=== PATIENT | male | born 1985 | race Caucasian/White ===

== ENCOUNTER 2016-07-09 19:18 | Emergency (ER) | payer OTHER ==
[2016-07-09 19:28] VITALS: BP 140/77; PULSE 86; RESP 18; TEMP 97.9
--- NOTE | 2016-07-09 19:38 | ED ---
General Adult HPI - General Chief complaint: Extremity Injury, Lower Stated complaint: Foot Injury Time Seen by Provider: 07/09/16 19:28 Source: patient, RN notes reviewed Mode of arrival: ambulatory Limitations: no limitations - History of Present Illness Initial comments: Patient is a 30-year-old male who presents emergency room today with a chief complaint of an injury to the right foot that occurred just prior to arrival. He does admit that he had a dog cage that he was carrying down the steps when she slipped landing on top of his right foot. He does admit that his had increased pain since worse with movements of both plantar and dorsiflexion. Patient denies any other complaints associated symptoms. Patient denies any recent fever, chills, shortness of breath, chest pain, back pain, abdominal pain , nausea or vomiting, numbness or tingling, dysuria or hematuria, constipation or diarrhea, headaches or visual changes, or any other complaints. - Related Data Previous Rx's Medication Instructions Recorded Ibuprofen [Motrin] 600 mg PO Q6HR PRN #30 day 07/09/16 Allergies Allergy/AdvReac Type Severity Reaction Status Date / Time latex Allergy Unknown Verified 07/09/16 19:27 Penicillins Allergy Unknown Verified 07/09/16 19:27 Review of Systems ROS Statement: Those systems with pertinent positive or pertinent negative responses have been documented in the HPI. ROS Other: All systems not noted in ROS Statement are negative. Past Medical History Past Medical History: Asthma Additional Past Medical History / Comment(s): neurontin helping with bipolar History of Any Multi-Drug Resistant Organisms: None Reported Additional Past Surgical History / Comment(s): facial reconstruction Past Psychological History: ADD/ADHD, Bipolar, Panic Disorder, PTSD Smoking Status: Current every day smoker Past Alcohol Use History: None Reported Past Drug Use History: None Reported General Exam - General Exam Comments Initial Comments: General: The patient is awake and alert, in no distress, and does not appear acutely ill. Neck: The neck is supple, there is no tenderness or JVD. Cardiovascular: There is a regular rate and rhythm. No murmur, rub or gallop is appreciated. Respiratory: Lungs are clear to auscultation, respirations are non-labored, breath sounds are equal. No wheezes, stridor, rales, or rhonchi. Musculoskeletal: Mild redness over the dorsal aspect of the right foot. Patient shows good range of motion of the digits. Limited range of motion of both plantar and dorsiflexion due to pain. Locally tender to palpation over the proximal first, second, third metatarsals. Sensations are intact pulses equal bilaterally 2+. Strength is 5/5. Neurological: A&O x 3. CN II-XII intact, There are no obvious motor or sensory deficits. Coordination appears grossly intact. Speech is normal. Skin: Skin is warm and dry and no rashes or lesions are noted. Psychiatric: Normal mood and affect. Limitations: no limitations Course Vital Signs 07/09/16 19:25 Temperature 97.9 F Pulse Rate 86 Respiratory 18 Rate Blood Pressure 140/77 O2 Sat by Pulse 96 Oximetry Medical Decision Making - Medical Decision Making X-rays reviewed shows no acute fracture dislocation. Patient advised to continue to ice elevate. Advised use ibuprofen for pain. Advised follow-up with family doctor or orthopedics over the next 7-10 days for repeat x-rays if symptoms persist. Disposition Clinical Impression: Foot contusion Disposition: HOME SELF-CARE Condition: Good Instructions: Foot Contusion (ED) Additional Instructions: Please use ibuprofen for pain. Please continue to ice elevate the affected areas 4 times a day for 20 minutes at a time. Please follow-up the family doctor or orthopedics over the next 7-10 days for repeat x-rays if symptoms persist. Please return to emergency room if the symptoms increase or worsen or for any other concerns. Prescriptions: Ibuprofen [Motrin] 600 mg PO Q6HR PRN #30 day PRN Reason: Pain Referrals: Yobany Chung MD [Primary Care Provider] - 1-2 days Andres Mcadams MD [STAFF PHYSICIAN] - 1-2 days Time of Disposition: 20:23
--- NOTE | 2016-07-09 20:03 | XR ---
EXAMINATION TYPE: XR foot limited RT DATE OF EXAM: 07/09/2016 7:50 PM COMPARISON: NONE HISTORY: Foot pain TECHNIQUE: 3 views FINDINGS: I see no fracture nor dislocation. Joint spaces are normal. Metatarsals are intact. IMPRESSION: Negative right foot exam.
--- NOTE | 2016-07-09 20:04 | XR ---
EXAMINATION TYPE: XR ankle limited RT DATE OF EXAM: 07/09/2016 7:50 PM COMPARISON: NONE HISTORY: Ankle pain TECHNIQUE: 3 views FINDINGS: Ankle mortise is anatomic. I see no fracture nor dislocation. Joint spaces are normal. IMPRESSION: Normal right ankle.
[2016-07-09] MEDS ORDERED: IBUPROFEN 600 MG STARTER PACK 4 TAB BTL PO STA (20:19)
== END 2016-07-09 20:24 | disposition home or self-care (01) ==
LOC: EC 19:18
DX: S90.31XA Contusion of right foot, initial encounter (principal); F17.200 Nicotine dependence, unspecified, uncomplicated; Z88.0 Allergy status to penicillin; Z91.040 Latex allergy status; W20.8XXA Other cause of strike by thrown, projected or falling object, initial encounter; Y92.009 Unspecified place in unspecified non-institutional (private) residence as the place of occurrence of the external cause
CPT/HCPCS: 99283

== ENCOUNTER 2016-08-14 18:30 | Emergency (ER) | payer OTHER ==
[2016-08-14] MEDS ORDERED: IPRATROPIUM-ALBUTEROL 3 ML NEB INHALATION STA (19:00)
[2016-08-14 19:29] VITALS: PULSE 84
--- NOTE | 2016-08-14 19:32 | ED ---
ENT HPI - General Chief complaint: ENT Stated complaint: COLD SYMPTOMS, EAR PAIN/POPPING Time Seen by Provider: 08/14/16 18:52 Source: patient Mode of arrival: ambulatory Limitations: no limitations - History of Present Illness Initial comments: Patient is a 30-year-old white male with medical history significant for asthma and nicotine dependence presenting to the emergency department with complains of right ear otalgia that started last night after he coughed profusely and hurt his right ear pop. Patient states he's been battling an upper respiratory infection for approximately one week. Patient denies discharge from his right ear but reports sharp pain currently rated 8 out of 10. Patient denies fevers or chills. Patient complains of productive cough with white phlegm. Patient denies shortness of breath, chest pain, or abdominal pain. Patient states he's been taken Motrin [id number] with no relief and Mucinex. MD complaint: ear pain (Right ear) Onset/Timin -: days(s) Location: R ear Severity: moderate Severity scale (1-10): 8 Quality: sharp Consistency: constant Improves with: NSAID Associated Symptoms: cough, rhinorrhea - Related Data Previous Rx's Medication Instructions Recorded Ibuprofen [Motrin] 600 mg PO Q6HR PRN #30 day 07/09/16 Acetaminophen with Codeine 1 tab PO Q4H #20 tab 08/14/16 [Tylenol w/codeine #3] Azithromycin [Zithromax Z-pack] 0 mg PO DIRECTED #6 tab 08/14/16 Ciprofloxacin-Dexameth [Ciprodex 4 drops RIGHT EAR BID #1 bottle 08/14/16 Otic Susp] Ipratropium-Albuterol Nebulize 3 ml INHALATION QID PRN #30 neb 08/14/16 [Duoneb 0.5 mg-3 mg/3 ml Soln] methylPREDNISolone Dose Pack 4 mg PO DIRECTED #21 package 08/14/16 [Medrol Dose Pack] Allergies Allergy/AdvReac Type Severity Reaction Status Date / Time latex Allergy Unknown Verified 08/14/16 18:51 Penicillins Allergy Unknown Verified 08/14/16 18:51 Review of Systems ROS Statement: Those systems with pertinent positive or pertinent negative responses have been documented in the HPI. ROS Other: All systems not noted in ROS Statement are negative. Past Medical History Past Medical History: Asthma Additional Past Medical History / Comment(s): neurontin helping with bipolar History of Any Multi-Drug Resistant Organisms: None Reported Additional Past Surgical History / Comment(s): facial reconstruction Past Psychological History: ADD/ADHD, Bipolar, Panic Disorder, PTSD Smoking Status: Current every day smoker Past Alcohol Use History: None Reported Past Drug Use History: None Reported General Exam Limitations: no limitations General appearance: alert, in no apparent distress Head exam: Present: atraumatic, normocephalic, normal inspection Eye exam: Present: normal appearance, PERRL, EOMI. Absent: scleral icterus, conjunctival injection, periorbital swelling ENT exam: Present: normal oropharynx, mucous membranes moist Expanded TM/Canal exam: Erythema: Right TM, Effusion: Right TM, Perforation: Right TM Mouth exam: Present: normal external inspection Throat exam: normal inspection. negative: tonsillar erythema, tonsillomegaly, tonsillar exudate, R peritonsillar mass, L peritonsillar mass Neck exam: Present: normal inspection, full ROM. Absent: tenderness Respiratory exam: Present: wheezes, rhonchi Cardiovascular Exam: Present: regular rate, normal rhythm, normal heart sounds GI/Abdominal exam: Present: soft, normal bowel sounds. Absent: distended, tenderness, guarding, rebound, rigid Extremities exam: Present: normal inspection, full ROM Back exam: Present: normal inspection, full ROM Neurological exam: Present: alert, oriented X3, normal gait, other (No focal deficits noted) Psychiatric exam: Present: normal affect, normal mood Skin exam: Present: warm, dry, intact, normal color. Absent: rash Course Vital Signs 08/14/16 08/14/16 08/14/16 18:49 19:23 19:29 Temperature 98.8 F Pulse Rate 90 78 84 Respiratory 20 Rate Blood Pressure 128/58 O2 Sat by Pulse 96 Oximetry 08/14/16 19:49 Temperature 98.6 F Pulse Rate 84 Respiratory 18 Rate Blood Pressure 121/69 O2 Sat by Pulse 99 Oximetry Medical Decision Making - Medical Decision Making Patient is a 30-year-old male who presents with acute otitis media with tympanic membrane rupture to right ear and bronchitis. Chest x-ray negative for infiltrate. Patient given nebulized updraft treatment with relief. Patient provided with prescription for Zithromax, ciprofloxacin eardrops, prednisone taper pack, DuoNeb updrafts, and Tylenol 3. Patient instructed to follow-up with ENT if symptoms do not improve and primary care physician as directed. Patient educated on importance of nicotine cessation. Patient agrees to treatment plan. Discharge instructions and return parameters reviewed. - Radiology Data Radiology results: report reviewed Chest x-ray: No pulmonary acute process. Disposition Clinical Impression: Otitis media, Rupture of tympanic membrane, Bronchitis Disposition: HOME SELF-CARE Condition: Good Instructions: Ruptured Eardrum (ED), Otitis Media (ED), Acute Bronchitis (ED), Wheezing (ED) Additional Instructions: Keep water out of the ear until tympanic membrane heals using a cotton ball saturated with petrolatum before hair washing, no swimming or other water exposure until healed, do not use earplugs to try to clean out the with a Q- tip. Finish prescribed medication as directed. Follow-up with ENT if any concerns for hearing loss worsening symptoms. Follow-up with primary care physician as directed. Please return to the emergency department if symptoms do not improve or get worse. Prescriptions: Acetaminophen with Codeine [Tylenol w/codeine #3] 1 tab PO Q4H #20 tab Azithromycin [Zithromax Z-pack] 0 mg PO DIRECTED #6 tab Ciprofloxacin-Dexameth [Ciprodex Otic Susp] 4 drops RIGHT EAR BID #1 bottle Ipratropium-Albuterol Nebulize [Duoneb 0.5 mg-3 mg/3 ml Soln] 3 ml INHALATION QID PRN #30 neb PRN Reason: Shortness Of Breath methylPREDNISolone Dose Pack [Medrol Dose Pack] 4 mg PO DIRECTED #21 package Referrals: Yobany Chung MD [Primary Care Provider] - 1-2 days Yoni Mi MD [STAFF PHYSICIAN] - 1-2 days Time of Disposition: 19:59
--- NOTE | 2016-08-14 19:32 | XR ---
EXAMINATION TYPE: XR chest 2V DATE OF EXAM: 08/14/2016 7:14 PM COMPARISON: 07/15/2012 INDICATION: Pain cough and congestion TECHNIQUE: Single frontal view of the chest is obtained. FINDINGS: The heart size is normal. The pulmonary vasculature is normal. The lungs are clear. IMPRESSION: 1. No acute pulmonary process.
[2016-08-14] MEDS ORDERED: CIPROFLOXACIN-DEXAMETH 0.3-0.1% DROPS 7.5 ML BTL RIGHT EAR STA (19:44)
[2016-08-14 19:50] VITALS: BP 121/69; RESP 18; TEMP 98.6
[2016-08-14] MEDS ORDERED: Acetaminophen-Codeine 300-30mg TAB PO STA (20:02)
== END 2016-08-14 20:18 | disposition home or self-care (01) ==
LOC: EC 18:30
DX: H66.91 Otitis media, unspecified, right ear (principal); H72.91 Unspecified perforation of tympanic membrane, right ear; R05 Cough; J45.909 Unspecified asthma, uncomplicated; F17.210 Nicotine dependence, cigarettes, uncomplicated; Z79.899 Other long term (current) drug therapy; Z88.0 Allergy status to penicillin; Z91.040 Latex allergy status
CPT/HCPCS: 71020; 94640; 99283

== ENCOUNTER 2017-09-04 08:13 | Emergency (ER) | payer OTHER ==
[2017-09-04 08:27] VITALS: BP 118/63; PULSE 77; RESP 18; TEMP 98.3
--- NOTE | 2017-09-04 08:36 | ED ---
ENT HPI - General Chief complaint: ENT Stated complaint: Ear pain Time Seen by Provider: 09/04/17 08:29 Source: patient, RN notes reviewed Mode of arrival: ambulatory Limitations: no limitations - History of Present Illness Initial comments: 31-year-old male presents emergency department she went right ear pain. Patient 's visual: No male with right ear pain. Patient has been sick for last week with sinus congestion states is getting better. Patient does admit to some coughing and chest congestion but states it's also improving. Patient is a smoker. Patient states she's had no fevers or chills. Patient did take an Aleve states helped his discomfort to his right ear. - Related Data Previous Rx's Medication Instructions Recorded Ibuprofen [Motrin] 600 mg PO Q6HR PRN #30 day 07/09/16 Acetaminophen with Codeine 1 tab PO Q4H #20 tab 08/14/16 [Tylenol w/codeine #3] Azithromycin [Zithromax Z-pack] 0 mg PO DIRECTED #6 tab 08/14/16 Ciprofloxacin-Dexameth [Ciprodex 4 drops RIGHT EAR BID #1 bottle 08/14/16 Otic Susp] Ipratropium-Albuterol Nebulize 3 ml INHALATION QID PRN #30 neb 08/14/16 [Duoneb 0.5 mg-3 mg/3 ml Soln] methylPREDNISolone Dose Pack 4 mg PO DIRECTED #21 package 08/14/16 [Medrol Dose Pack] Azithromycin [Zithromax Z-pack] 0 mg PO DIRECTED #1 pack 09/04/17 predniSONE 50 mg PO DAILY #5 tab 09/04/17 Allergies Allergy/AdvReac Type Severity Reaction Status Date / Time latex Allergy Unknown Verified 09/04/17 08:27 Penicillins Allergy Unknown Verified 09/04/17 08:27 Review of Systems ROS Statement: Those systems with pertinent positive or pertinent negative responses have been documented in the HPI. ROS Other: All systems not noted in ROS Statement are negative. Past Medical History Past Medical History: Asthma Additional Past Medical History / Comment(s): neurontin helping with bipolar History of Any Multi-Drug Resistant Organisms: None Reported Additional Past Surgical History / Comment(s): facial reconstruction Past Psychological History: ADD/ADHD, Bipolar, Depression, Panic Disorder, PTSD Smoking Status: Current every day smoker Past Alcohol Use History: None Reported Past Drug Use History: None Reported General Exam Limitations: no limitations General appearance: alert, in no apparent distress Head exam: Present: atraumatic, normocephalic, normal inspection Eye exam: Present: normal appearance, PERRL, EOMI. Absent: scleral icterus, conjunctival injection, periorbital swelling ENT exam: Present: normal oropharynx, mucous membranes moist, normal external ear exam. Absent: TM's normal bilaterally (Right TM erythematous) Neck exam: Present: normal inspection, full ROM. Absent: tenderness, meningismus, lymphadenopathy Respiratory exam: Present: wheezes (Mild). Absent: normal lung sounds bilaterally, respiratory distress, rales, rhonchi, stridor Cardiovascular Exam: Present: regular rate, normal rhythm, normal heart sounds. Absent: systolic murmur, diastolic murmur, rubs, gallop, clicks Back exam: Absent: CVA tenderness (R), CVA tenderness (L) Skin exam: Present: warm, dry, intact, normal color. Absent: rash Course Vital Signs 09/04/17 08:25 Temperature 98.3 F Pulse Rate 77 Respiratory 18 Rate Blood Pressure 118/63 O2 Sat by Pulse 97 Oximetry Medical Decision Making - Medical Decision Making 31-year-old male presented from for right ear pain. Patient has a right otitis media. Patient was started on azithromycin as he has an ALLERGY to penicillin. Patient will be given steroids for his mild bronchospasms noted. Patient advised quit smoking. Return parameters were discussed. Disposition Clinical Impression: Right otitis media, URI (upper respiratory infection) Disposition: HOME SELF-CARE Condition: Stable Instructions: Earache (ED) Additional Instructions: Please return to the Emergency Department if symptoms worsen or any other concerns. Prescriptions: Azithromycin [Zithromax Z-pack] 0 mg PO DIRECTED #1 pack predniSONE 50 mg PO DAILY #5 tab Referrals: Yobany Chung MD [Primary Care Provider] - 1-2 days Time of Disposition: 08:36
== END 2017-09-04 08:53 | disposition home or self-care (01) ==
LOC: EC 08:13
DX: H66.91 Otitis media, unspecified, right ear (principal); J06.9 Acute upper respiratory infection, unspecified; F17.200 Nicotine dependence, unspecified, uncomplicated; Z91.040 Latex allergy status; Z88.0 Allergy status to penicillin
CPT/HCPCS: 99282

== ENCOUNTER → 2018-12-07 | Outpatient (CLI) | payer OTHER ==
--- NOTE | 2018-12-08 16:37 | MR ---
EXAMINATION TYPE: MR lumbar spine wo con DATE OF EXAM: 12/07/2018 COMPARISON: None HISTORY: Low back pain TECHNIQUE: Multiplanar, multisequence images of the lumbar spine were acquired. FINDINGS: No abnormal bone marrow signal is seen. Multiple lymph nodes are present. Multilevel disc d esiccation is seen. Lumbar spine vertebral bodies maintain normal vertebral body height and alignment . Conus medullaris is unremarkable terminating at L1-2. L1-L2: Mild facet arthropathy is seen. Disc desiccation is present without spinal canal stenosis nor neural foraminal narrowing. L2-L3: There is a broad-based disc bulge and minimal facet arthropathy without spinal canal stenosis or neural foraminal narrowing. L3-L4: There is a mild broad-based disc bulge with facet arthropathy. No spinal canal stenosis nor ne ural foraminal narrowing. L4-L5: There is a small central disc herniation with annular tear as well as facet arthropathy result ing in minimal bilateral neural foraminal narrowing without spinal canal stenosis. L5-S1: Very small central disc herniation is seen without spinal canal stenosis or neural foraminal n arrowing. Minimal facet arthropathy is present. IMPRESSION: 1. Small central disc herniations at L4-L5 and L5-S1 without spinal canal stenosis. Multilevel degene rative disc disease resulting in minimal bilateral neural foraminal narrowing at L4-L5. 2. No evidence of vertebral body height loss or malalignment.
== END | disposition home or self-care (01) ==
LOC: RADMRIMAIN 16:51
PROVIDERS: ATTEND Internal Medicine
DX: M48.061 Spinal stenosis, lumbar region without neurogenic claudication (principal); M51.26 Other intervertebral disc displacement, lumbar region; M51.36 Other intervertebral disc degeneration, lumbar region
CPT/HCPCS: 72148

== ENCOUNTER → 2022-02-17 | Outpatient (CLI) | payer OTHER ==
--- NOTE | 2022-02-19 07:28 | US ---
EXAMINATION TYPE: US abdomen complete DATE OF EXAM: 02/17/2022 COMPARISON: NONE CLINICAL HISTORY: R10.9 ABDOMINAL PAIN, K59.09 CONSTIPATION. Pain and constipation. TECHNIQUE: Multiple sonographic images of the abdomen are obtained. FINDINGS: EXAM MEASUREMENTS: Liver Length: 17.6 cm Gallbladder Wall: 0.23 cm CBD: 0.36 cm Spleen: 12.2 cm Right Kidney: 13.4 x 5.8 x 5.0 cm Left Kidney: 11.0 x 6.6 x 6.0 cm [employer] NOTES: Limited due to overlying bowel gas. Pancreas: Not well visualized. Liver: Measures upper limits. Appears very coarse with increased attenuation. Gallbladder: Hyperechoic foci seen within the gallbladder. Largest: 2.2 x 2.0 x 1.1 cm. There also appears to be a hyperechoic area attached to the gallbladder wall: 0.5 x 0.3 x 0.3 cm. Evidence for sonographic Jesus's sign: No CBD: Appears wnl Spleen: Appears wnl Right Kidney: Appears slightly enlarged. No hydronephrosis or masses seen Left Kidney: No hydronephrosis or masses seen Upper IVC: Appears wnl Abd Aorta: Prox appears ectatic. Iliacs were obscured. IMPRESSION: 1. Hepatic steatosis. 2. Cholelithiasis. Adherent gallstone versus polyp.
== END | disposition home or self-care (01) ==
LOC: RADUSWWP 07:53
PROVIDERS: ATTEND Family Medicine
DX: K80.20 Calculus of gallbladder without cholecystitis without obstruction (principal); K76.0 Fatty (change of) liver, not elsewhere classified
CPT/HCPCS: 76700

== ENCOUNTER 2024-04-21 04:51 | Emergency (ER) | payer OTHER ==
[2024-04-21 05:18] VITALS: RESP 18
--- NOTE | 2024-04-21 06:22 | ED ---
General Adult HPI - General Source: patient, RN notes reviewed Mode of arrival: ambulatory <Pam Mayfield - Last Filed: 04/21/24 06:21> <Calos Perez - Last Filed: 04/21/24 15:10> - General Chief complaint: Psychiatric Symptoms Stated complaint: Abd Pain/Psych Time Seen by Provider: 04/21/24 06:21 - History of Present Illness Initial comments: Quick note: 38-year-old male presented the ER with a chief complaint of abdominal pain and depression. Patient reports for the past few days he has been having a stabbing right upper quadrant abdominal pain. He states he has not been able to keep anything down but Sprite. Positive nausea but no vomiting. Patient also is admitting to suicidal ideations. No plans. He does report smoking marijuana. Denies any alcohol use. No homicidal ideations. No fevers. (Pam Mayfield) This is a 38-year-old male who states that he comes in because he is got abdominal pain and some depression. Patient states that depression is because the last 4 days his has been telling him she does not want him around anymore and he feels as though she is cheating on him. Patient states he had some suicidal thoughts but he denies wanting to kill himself and he states he will kill himself because he has 4 children. Patient denies any vomiting or diarrhea he states he has had longstanding abdominal pains particular in the right upper quadrant but it got worse tonight after he talked to his . (Calos Perez) - Related Data Home Medications Medication Instructions Recorded Confirmed Naproxen Sodium [Aleve] 220 mg PO DAILY PRN 09/04/17 09/04/17 Previous Rx's Medication Instructions Recorded Azithromycin [Zithromax Z-pack (6 0 mg PO DIRECTED #1 pack 09/04/17 tabs)] predniSONE 50 mg PO DAILY #5 tab 09/04/17 Allergies Allergy/AdvReac Type Severity Reaction Status Date / Time latex Allergy Unknown Verified 09/04/17 08:53 Penicillins Allergy Unknown Verified 09/04/17 08:53 Review of Systems ROS Other: All systems not noted in ROS Statement are negative. <Pam Mayfield - Last Filed: 04/21/24 06:21> ROS Other: All systems not noted in ROS Statement are negative. <Calos Perez - Last Filed: 04/21/24 15:10> ROS Statement: Those systems with pertinent positive or pertinent negative responses have been documented in the HPI. Past Medical History Past Medical History: Asthma Additional Past Medical History / Comment(s): neurontin helping with bipolar History of Any Multi-Drug Resistant Organisms: None Reported Additional Past Surgical History / Comment(s): facial reconstruction Past Psychological History: ADD/ADHD, Bipolar, Depression, Panic Disorder, PTSD Past Alcohol Use History: None Reported Past Drug Use History: None Reported <Pam Mayfield - Last Filed: 04/21/24 06:21> General Exam <Pam Mayfield - Last Filed: 04/21/24 06:21> <Calos Perez - Last Filed: 04/21/24 15:10> - General Exam Comments Initial Comments: Visual Physical Exam Vital signs reviewed General: Well-appearing, nontoxic, no acute distress. Head: Normocephalic, atraumatic Eyes: PERRLA, EOMI ENT: Airway patent Chest: Nonlabored breathing Skin: No visual rash, normal skin tone Neuro: Alert and oriented 3 Musculoskeletal: No gross abnormalities (Pam Mayfield) GENERAL: Patient is well-developed and well-nourished. Patient is nontoxic and well- hydrated and is in mild distress. ENT: Neck is soft and supple. No significant lymphadenopathy is noted. Oropharynx is clear. Moist mucous membranes. Neck has full range of motion without eliciting any pain. EYES: The sclera were anicteric and conjunctiva were pink and moist. Extraocular movements were intact and pupils were equal round and reactive to light. Eyelids were unremarkable. PULMONARY: Unlabored respirations. Good breath sounds bilaterally. No audible rales rhonchi or wheezing was noted. CARDIOVASCULAR: There is a regular rate and rhythm without any murmurs gallops or rubs. ABDOMEN: Right upper quadrant abdominal pain SKIN: Skin is clear with no lesions or rashes and otherwise unremarkable. NEUROLOGIC: Patient is alert and oriented x3. Cranial nerves II through XII are grossly intact. Motor and sensory are also intact. Normal speech, volume and content. Symmetrical smile. MUSCULOSKELETAL: Normal extremities with adequate strength and full range of motion. LYMPHATICS: No significant lymphadenopathy is noted PSYCHIATRIC: Normal psychiatric evaluation. (Calos Perez) Course Vital Signs 04/21/24 04/21/24 05:07 12:35 Temperature 98.8 F 98.6 F Pulse Rate 101 H 96 Respiratory 18 18 Rate Blood Pressure 130/82 139/86 O2 Sat by Pulse 98 97 Oximetry Medical Decision Making <Pam Mayfield - Last Filed: 04/21/24 06:21> - Lab Data Result diagrams: 04/21/24 06:30 04/21/24 06:30 <Calos Perez - Last Filed: 04/21/24 15:10> - Medical Decision Making I performed the quick note portion of this chart. Electronically signed by Pam Mayfield PA-C (Pam Mayfield) Was pt. sent in by a medical professional or institution ([facility]ALIA Lenz, EMERGENCY DEPT TECH, urgent care, hospital, or penitentiary...) When possible be specific @ -No Did you speak to anyone other than the patient for history (EMS, parent, family, police, friend...)? What history was obtained from this source @ -No Did you review nursing and triage notes (agree or disagree)? Why? @ -I reviewed and agree with nursing and triage notes Were old charts reviewed (outside hosp., previous admission, EMS record, old EKG, old radiological studies, urgent care reports/EKG's, penitentiary records)? Report findings @ -No old charts were reviewed Differential Diagnosis? @ -Differential Abdominal Pain Men: Appendicitis, cholecystitis, diverticulosis, ischemic bowel, pancreatitis, hepatitis, UTI, gastroenteritis, AAA, incarcerated hernia, bowel obstruction, constipation, inflammatory bowel, hepatitis, peptic ulcer disease, splenic infarction, perforated viscus, testicular torsion, this is not meant to be an all-inclusive list EKG interpreted by me (3pts min.). @ -As above X-rays interpreted by me (1pt min.). @ -None done CT interpreted by me (1pt min.). @ -CT showed large stones in the gallbladder neck no signs of cholecystitis U/S interpreted by me (1pt. min.). @ -Multiple stones in the gallbladder What testing was considered but not performed or refused? (CT, X-rays, U/S, labs)? Why? @ -None What meds were considered but not given or refused? Why? @ -None Did you discuss the management of the patient with other professionals (professionals i.e. , PA, EMERGENCY DEPT TECH, lab, RT, psych nurse, social secretary, visiting professor, teacher, associate loan officer, manager rn case)? Give summary @ -I spoke with Dr. La and he spoke with the patient Was smoking cessation discussed for >3mins.? @ -No Was critical care preformed (if so, how long)? @ -No Were there social determinants of health that impacted care today? How? (Homelessness, low income, unemployed, alcoholism, drug addiction, transportatio n, low edu. Level, literacy, decrease access to med. care, prison, rehab)? @ -No Was there de-escalation of care discussed even if they declined (Discuss DNR or withdrawal of care, Hospice)? DNR status @ -No What co-morbidities impacted this encounter? (DM, HTN, Smoking, COPD, CAD, Cancer, CVA, ARF, Chemo, Hep., AIDS, mental health diagnosis, sleep apnea, morbid obesity)? @ -None Was patient admitted / discharged? Hospital course, mention meds given and route, prescriptions, significant lab abnormalities, going to OR and other pertinent info. @ -Patient was evaluated the emergency department and ultrasound and CT were done. Patient had stones in the gallbladder and it was very tender in the right upper quadrant and Dr. La wanted the patient to stay but the patient refused that he decided to leave AMA. I went back and and evaluated the patient he again wanted to leave A and he also stated he was not suicidal he just had fleeting thoughts of that when his and him are having problems. Patient states he does not want to be evaluated for psychiatric issues or depression. I asked him at least 3 times if he was suicidal and he denied at all 3 times. Patient stated he might come back tomorrow morning. Undiagnosed new problem with uncertain prognosis? @ -No Drug Therapy requiring intensive monitoring for toxicity (Heparin, Nitro, Insulin, Cardizem)? @ -No Were any procedures done? @ -No Diagnosis/symptom? @ -Cholelithiasis Acute, or Chronic, or Acute on Chronic? @ -Acute Uncomplicated (without systemic symptoms) or Complicated (systemic symptoms)? @ -Complicated Side effects of treatment? @ -No Exacerbation, Progression, or Severe Exacerbation? @ -No Poses a threat to life or bodily function? How? (Chest pain, [place], [place], pneumonia, PE, COPD, DKA, ARF, appy, cholecystitis, CVA, Diverticulitis, Homicidal, Suicidal, threat to staff... and all critical care pts) @ -Yes this can cause sepsis and endorgan dysfunction or (Calos Perez) - Lab Data Lab Results 04/21/24 04/21/24 04/21/24 Range/Units 06:30 06:30 06:30 WBC 10.1 (3.8-10.6) k/uL RBC 5.40 (4.30-5.90) m/uL Hgb 16.7 (13.0-17.5) gm/dL Hct 48.9 (39.0-53.0) % MCV 90.5 (80.0-100.0) fL MCH 30.9 (25.0-35.0) pg MCHC 34.2 (31.0-37.0) g/dL RDW 12.5 (11.5-15.5) % Plt Count 268 (150-450) k/uL MPV 7.9 Neutrophils % 74 % Lymphocytes % 18 % Monocytes % 5 % Eosinophils % 1 % Basophils % 0 % Neutrophils # 7.5 (1.3-7.7) k/uL Lymphocytes # 1.8 (1.0-4.8) k/uL Monocytes # 0.5 (0-1.0) k/uL Eosinophils # 0.1 (0-0.7) k/uL Basophils # 0.0 (0-0.2) k/uL Sodium 139 (137-145) mmol/L Potassium 4.4 (3.5-5.1) mmol/L Chloride 104 (98-107) mmol/L Carbon Dioxide 31 H (22-30) mmol/L Anion Gap 4 mmol/L BUN 11 (9-20) mg/dL Creatinine 0.95 (0.66-1.25) mg/dL Est GFR (CKD-EPI)AfAm >90 (>60 ml/min/1.73 sqM) Est GFR (CKD-EPI)NonAf >90 (>60 ml/min/1.73 sqM) Glucose 105 H (74-99) mg/dL Plasma Lactic Acid Dany (0.7-2.0) mmol/L Calcium 9.6 (8.4-10.2) mg/dL Total Bilirubin 0.7 (0.2-1.3) mg/dL AST 30 (17-59) U/L ALT 51 H (4-49) U/L Alkaline Phosphatase 73 (38-126) U/L Total Protein 8.2 (6.3-8.2) g/dL Albumin 5.3 H (3.5-5.0) g/dL Amylase 38 (30-110) U/L Lipase 33 (23-300) U/L Urine Color Colorless Urine Appearance Clear (Clear) Urine pH 6.0 (5.0-8.0) Ur Specific [place] 1.005 (1.001-1.035) Urine Protein Negative (Negative) Urine Glucose (UA) Negative (Negative) Urine Ketones Negative (Negative) Urine Blood Negative (Negative) Urine Nitrite Negative (Negative) Urine Bilirubin Negative (Negative) Urine Urobilinogen <2.0 (<2.0) mg/dL Ur Leukocyte Esterase Negative (Negative) Urine Opiates Screen Not Detected (NotDetected) Ur Oxycodone Screen Not Detected (NotDetected) Urine Methadone Screen Not Detected (NotDetected) Ur Barbiturates Screen Not Detected (NotDetected) U Tricyclic Antidepress Not Detected (NotDetected) Ur Phencyclidine Scrn Not Detected (NotDetected) Ur Amphetamines Screen Not Detected (NotDetected) U Methamphetamines Scrn Not Detected (NotDetected) U Benzodiazepines Scrn Not Detected (NotDetected) Urine Cocaine Screen Not Detected (NotDetected) U Marijuana (THC) Screen Detected H (NotDetected) Serum Alcohol <10 mg/dL 04/21/24 Range/Units 06:30 WBC (3.8-10.6) k/uL RBC (4.30-5.90) m/uL Hgb (13.0-17.5) gm/dL Hct (39.0-53.0) % MCV (80.0-100.0) fL MCH (25.0-35.0) pg MCHC (31.0-37.0) g/dL RDW (11.5-15.5) % Plt Count (150-450) k/uL MPV Neutrophils % % Lymphocytes % % Monocytes % % Eosinophils % % Basophils % % Neutrophils # (1.3-7.7) k/uL Lymphocytes # (1.0-4.8) k/uL Monocytes # (0-1.0) k/uL Eosinophils # (0-0.7) k/uL Basophils # (0-0.2) k/uL Sodium (137-145) mmol/L Potassium (3.5-5.1) mmol/L Chloride (98-107) mmol/L Carbon Dioxide (22-30) mmol/L Anion Gap mmol/L BUN (9-20) mg/dL Creatinine (0.66-1.25) mg/dL Est GFR (CKD-EPI)AfAm (>60 ml/min/1.73 sqM) Est GFR (CKD-EPI)NonAf (>60 ml/min/1.73 sqM) Glucose (74-99) mg/dL Plasma Lactic Acid Dany 1.1 (0.7-2.0) mmol/L Calcium (8.4-10.2) mg/dL Total Bilirubin (0.2-1.3) mg/dL AST (17-59) U/L ALT (4-49) U/L Alkaline Phosphatase (38-126) U/L Total Protein (6.3-8.2) g/dL Albumin (3.5-5.0) g/dL Amylase (30-110) U/L Lipase (23-300) U/L Urine Color Urine Appearance (Clear) Urine pH (5.0-8.0) Ur Specific [place] (1.001-1.035) Urine Protein (Negative) Urine Glucose (UA) (Negative) Urine Ketones (Negative) Urine Blood (Negative) Urine Nitrite (Negative) Urine Bilirubin (Negative) Urine Urobilinogen (<2.0) mg/dL Ur Leukocyte Esterase (Negative) Urine Opiates Screen (NotDetected) Ur Oxycodone Screen (NotDetected) Urine Methadone Screen (NotDetected) Ur Barbiturates Screen (NotDetected) U Tricyclic Antidepress (NotDetected) Ur Phencyclidine Scrn (NotDetected) Ur Amphetamines Screen (NotDetected) U Methamphetamines Scrn (NotDetected) U Benzodiazepines Scrn (NotDetected) Urine Cocaine Screen (NotDetected) U Marijuana (THC) Screen (NotDetected) Serum Alcohol mg/dL Disposition <Pam Mayfield - Last Filed: 04/21/24 06:21> Time of Disposition: 12:24 <Calos Perez - Last Filed: 04/21/24 15:10> Clinical Impression: Situational depression, Cholelithiasis Disposition: LEFT AGAINST MEDICAL ADVICE Referrals: Anastasiia Alicea MD [Primary Care Provider] - 1-2 days
[2024-04-21 06:44] LABS: Basophils % (A) 0 %; Eosinophils # (A) 0.1 k/uL (0-0.7); Eosinophils % (A) 1 %; HCT 48.9 % (39.0-53.0); HGB 16.7 gm/dL (13.0-17.5); Lymphocytes # (A) 1.8 k/uL (1.0-4.8); Lymphocytes % (A) 18 %; MCH 30.9 pg (25.0-35.0); MCHC 34.2 g/dL (31.0-37.0); MCV 90.5 fL (80.0-100.0); Mean Platelet Volume 7.9; Monocytes # (A) 0.5 k/uL (0-1.0); Monocytes % (A) 5 %; Neutrophils # (A) 7.5 k/uL (1.3-7.7); Neutrophils % (A) 74 %; Platelet Count 268 k/uL (150-450); RDW 12.5 % (11.5-15.5); WBC 10.1 k/uL (3.8-10.6)
[2024-04-21 06:47] LABS: Appearance,Urine Clear (Clear); Bilirubin,Urine Negative (Negative); Blood,Urine Negative (Negative); Color,Urine Colorless; Glucose,Urine (UA) Negative (Negative); Ketones,Urine Negative (Negative); Leukocyte Esterase,Urine Negative (Negative); Nitrite,Urine Negative (Negative); Protein,Urine Negative (Negative); Specific Gravity,Urine 1.005 (1.001-1.035); Urobilinogen,Urine <2.0 mg/dL (<2.0)
[2024-04-21 06:58] LABS: ALT 51 U/L (4-49); AST 30 U/L (17-59); African American GFR (CKD) >90 (>60 ml/min/1.73 sqM); Albumin 5.3 g/dL (3.5-5.0); Alcohol <10 mg/dL; Alkaline Phosphatase 73 U/L (38-126); Amylase 38 U/L (30-110); Anion Gap 4 mmol/L; Blood Urea Nitrogen 11 mg/dL (9-20); Calcium 9.6 mg/dL (8.4-10.2); Carbon Dioxide 31 mmol/L (22-30); Chloride 104 mmol/L (98-107); Glucose 105 mg/dL (74-99); Lipase 33 U/L (23-300); Non-African American GFR(CKD) >90 (>60 ml/min/1.73 sqM); Potassium 4.4 mmol/L (3.5-5.1); Sodium 139 mmol/L (137-145); Total Bilirubin 0.7 mg/dL (0.2-1.3); Total Protein 8.2 g/dL (6.3-8.2)
[2024-04-21 07:04] LABS: Amphetamine Screen,Urine Not Detected (NotDetected); Barbiturate Screen,Urine Not Detected (NotDetected); Benzodiazepines Screen,Urine Not Detected (NotDetected); Cocaine Screen,Urine Not Detected (NotDetected); Methadone Screen, Urine Not Detected (NotDetected); Opiate Screen,Urine Not Detected (NotDetected); Oxycodone Screen, Urine Not Detected (NotDetected); Phencyclidine Screen,Urine Not Detected (NotDetected); Tricyclic Antidepressant,Urine Not Detected (NotDetected); Urn Cannabinoid Scrn Detected (NotDetected)
[2024-04-21] MEDS: ONDANSETRON ODT 4 MG TAB PO STA (08:04)
--- NOTE | 2024-04-21 08:08 | US ---
EXAMINATION TYPE: US gallbladder DATE OF EXAM: 04/21/2024 COMPARISON: 02/17/2022 CLINICAL INDICATION: Male, 38 years old with history of RUQ abd pain; known GB stones from 1 year ago , extreme RUQ and rt flank pain TECHNIQUE: Grayscale and color Doppler imaging of the right upper quadrant was performed. FINDINGS: EXAM MEASUREMENTS: Liver Length: 19.1 cm Gallbladder Wall: 0.2 cm CBD: 0.6 cm Right Kidney: 11.6 x 5.2 x 5.3 cm Pancreas: limited portion seen Liver: enlarged Gallbladder: multiple large stones, one within neck when rolled LLD = 1.6 x 1.4cm, sludge noted with in GB also Evidence for sonographic Jesus's sign: YES CBD: wnl Right Kidney: wnl IMPRESSION: 1. Multiple large gallstones within the distended gallbladder and a positive sonographic Jesus's sig n. The findings are consistent with acute cholecystitis. 2. Hepatomegaly with no focal hepatic mass. 3. Limited evaluation of the pancreas. 4. Unremarkable right kidney. [facility], , 04/21/2024 8:06 AM
--- NOTE | 2024-04-21 09:28 | CT ---
EXAMINATION TYPE: CT abdomen pelvis w con DATE OF EXAM: 04/21/2024 COMPARISON: None CLINICAL INDICATION: Male, 38 years old with history of Right upper quadrant abdominal pain; PHH, RIg ht Upper Quadrant Abdominal Pain TECHNIQUE: Performed without Oral Contrast and with IV Contrast, patient injected with 100 ml mL of Isovue 300. CT DLP: 974.[address] CTDI: mGy Automated exposure control for dose reduction was used. FINDINGS: The lung bases are clear. There are 2 large gallstones within the neck of the gallbladder. There is dense fluid within the gall bladder. There is no pericholecystic fluid.. There is no biliary ductal dilatation. There is no focal mass or organomegaly involving the liver, pancreas, spleen or adrenal glands. There is no solid renal mass or hydronephrosis and there is homogeneous contrast enhancement of the r enal parenchyma. The caliber the abdominal aorta is normal is no retroperitoneal adenopathy or hemorr debora. The bowel loops are normal in caliber and there is no evidence of dilatation or obstruction. No infla mmatory changes are identified in the bowel wall or mesentery. There is no free intraperitoneal air or fluid. No pelvic mass, free fluid, abscess or adenopathy. The osseous structures and soft tissues are intact. IMPRESSION: When correlating the above findings with the gallbladder ultrasound of the same date , the findings strongly suggest acute cholecystitis. No other significant abnormality within the abdomen or pelvis. [facility], , 04/21/2024 9:26 AM
[2024-04-21 12:37] VITALS: BP 139/86; PULSE 96; TEMP 98.6
== END 2024-04-21 13:21 | disposition left against medical advice (07) ==
LOC: EC 04:51
DX: F43.21 Adjustment disorder with depressed mood (principal); K80.20 Calculus of gallbladder without cholecystitis without obstruction; Z91.040 Latex allergy status; Z88.0 Allergy status to penicillin
CPT/HCPCS: 36415; 80053; 82150; 83605; 83690; 85025; 81003; 80306; 76705; 74177; 99285; G0480; Q9967; 80320

== ENCOUNTER 2024-04-22 02:38 | Observation (INO) | payer OTHER ==
--- NOTE | 2024-04-22 04:06 | ED ---
Abdominal Pain HPI - General Stated Complaint: abd pain Time Seen by Provider: 04/22/24 04:01 Source: patient Mode of arrival: ambulatory Limitations: no limitations - History of Present Illness Initial Comments: This patient is a 38-year-old man with abdominal pain who states that he was seen here yesterday for, had workup and was told that he had acute cholecystitis. The patient states that he at that time did not want to have surgery and went home. He was advised by the surgeon to return if the symptoms did not improve. He states that he is not doing any better and in fact the pain may be just a touch worse. He states that he would like to be admitted to have the surgery now. MD Complaint: abdominal pain -: days(s) Location: RUQ Radiation: none Migration to: no migration Severity: moderate Quality: aching, sharp Consistency: colicky Improves With: nothing Worsens With: eating Associated Symptoms: nausea, vomiting - Related Data Previous Rx's Medication Instructions Recorded HYDROcodone/APAP 10-325MG [[place] 1 tab PO Q6H PRN #12 tab MDD 4 tabs 04/24/24 10-325] Ibuprofen [Motrin] 800 mg PO Q6H PRN #24 tab 04/24/24 Allergies Allergy/AdvReac Type Severity Reaction Status Date / Time latex Allergy Swelling Verified 04/22/24 09:32 Penicillins Allergy Unknown Verified 04/22/24 09:32 Childhood Review of Systems ROS Statement: Those systems with pertinent positive or pertinent negative responses have been documented in the HPI. ROS Other: All systems not noted in ROS Statement are negative. Constitutional: Denies: fever, chills Respiratory: Denies: cough, dyspnea Cardiovascular: Denies: chest pain, palpitations Gastrointestinal: Reports: abdominal pain, nausea, vomiting. Denies: diarrhea, melena, hematochezia Genitourinary: Denies: dysuria, hematuria, testicular pain Musculoskeletal: Denies: back pain Skin: Denies: rash Neurological: Denies: headache, weakness Past Medical History Past Medical History: Asthma Additional Past Medical History / Comment(s): neurontin helping with bipolar History of Any Multi-Drug Resistant Organisms: None Reported Additional Past Surgical History / Comment(s): facial reconstruction Past Psychological History: ADD/ADHD, Bipolar, Depression, Panic Disorder, PTSD Past Alcohol Use History: None Reported Past Drug Use History: None Reported - Past Family History Father Family Medical History: Cancer Additional Family Medical History / Comment(s): Bone CA Mother Family Medical History: Cancer, Myocardial Infarction ([place]) Additional Family Medical History / Comment(s): Lung CA General Exam General appearance: alert, in no apparent distress Head exam: Present: atraumatic, normocephalic Eye exam: Present: normal appearance. Absent: scleral icterus, conjunctival injection ENT exam: Present: normal oropharynx Neck exam: Present: normal inspection Respiratory exam: Present: normal lung sounds bilaterally. Absent: respiratory distress, wheezes, rales, rhonchi, stridor, accessory muscle use Cardiovascular Exam: Present: regular rate, normal rhythm, normal heart sounds. Absent: systolic murmur, diastolic murmur, rubs, gallop GI/Abdominal exam: Present: soft, tenderness, guarding. Absent: distended, rebound, rigid, mass, pulsatile mass, hernia Extremities exam: Present: normal inspection, normal capillary refill. Absent: pedal edema, calf tenderness Back exam: Present: normal inspection. Absent: CVA tenderness (R), CVA tenderness (L) Neurological exam: Present: alert Skin exam: Present: warm, dry, intact, normal color. Absent: rash Course Vital Signs 04/22/24 04:24 Temperature 98.1 F Pulse Rate 85 Respiratory 18 Rate Blood Pressure 137/72 O2 Sat by Pulse 96 Oximetry Medical Decision Making - Medical Decision Making Was pt. sent in by a medical professional or institution (DALIA Lenz, [employer] SUPERVISOR, urgent care, hospital, or group home...) When possible be specific @ -[No] Did you speak to anyone other than the patient for history (EMS, parent, family, police, friend...)? What history was obtained from this source @ -[No] Did you review nursing and triage notes (agree or disagree)? Why? @ -[I reviewed and agree with nursing and triage notes] Were old charts reviewed (outside hosp., previous admission, EMS record, old EKG, old radiological studies, urgent care reports/EKG's, group home records)? Report findings @ -[Yes, old charts were reviewed] Differential Diagnosis (chest pain, altered mental status, abdominal pain women, abdominal pain men, vaginal bleeding, weakness, fever, dyspnea, syncope, headache, dizziness, GI bleed, back pain, seizure, CVA, palpatations, mental he alth, musculoskeletal)? @ -[Differential Abdominal Pain Men: Appendicitis, cholecystitis, diverticulosis, ischemic bowel, pancreatitis, hepatitis, UTI, gastroenteritis, AAA, incarcerated hernia, bowel obstruction, constipation, inflammatory bowel, hepatitis, peptic ulcer disease, splenic infarction, perforated viscus, testicular torsion, this is not meant to be an all-inclusive list EKG interpreted by me (3pts min.). @ -[As above] X-rays interpreted by me (1pt min.). @ -[None done] CT interpreted by me (1pt min.). @ -[None done] U/S interpreted by me (1pt. min.). @ -[None done] What testing was considered but not performed or refused? (CT, X-rays, U/S, labs)? Why? @ -[None] What meds were considered but not given or refused? Why? @ -[None] Did you discuss the management of the patient with other professionals (professionals i.e. , PA, [employer] SUPERVISOR, lab, RT, psych nurse, social media analyst, gun profiler, teacher, financial services officer, caser up)? Give summary @ -[I discussed the case with the on-call surgeon who will admit for probable surgery in the morning Was smoking cessation discussed for >3mins.? @ -[No] Was critical care preformed (if so, how long)? @ -[No] Were there social determinants of health that impacted care today? How? (Homelessness, low income, unemployed, alcoholism, drug addiction, transportation, low edu. Level, literacy, decrease access to med. care, half-way, rehab)? @ -[No] Was there de-escalation of care discussed even if they declined (Discuss DNR or withdrawal of care, Hospice)? DNR status @ -[No] What co-morbidities impacted this encounter? (DM, HTN, Smoking, COPD, CAD, Cancer, CVA, ARF, Chemo, Hep., AIDS, mental health diagnosis, sleep apnea, morbid obesity)? @ -[None] Was patient admitted / discharged? Hospital course, mention meds given and route, prescriptions, significant lab abnormalities, going to OR and other pertinent info. @ -[Patient is a 38-year-old man who returns with continued upper abdominal pain. He had been diagnosed with cholecystitis and had been advised to have surgery. The patient returns now because the pain has recurred and he believes that he will go through with the surgery now. Case discussed with surgery who will admit Undiagnosed new problem with uncertain prognosis? @ -[No] Drug Therapy requiring intensive monitoring for toxicity (Heparin, Nitro, Insulin, Cardizem)? @ -[No] Were any procedures done? @ -[No] Diagnosis/symptom? @ -[Acute abdominal pain Probable acute cholecystitis Acute, or Chronic, or Acute on Chronic? @ -[Acute Uncomplicated (without systemic symptoms) or Complicated (systemic symptoms)? @ -[Uncomplicated Side effects of treatment? @ -[No] Exacerbation, Progression, or Severe Exacerbation? @ -[No] Poses a threat to life or bodily function? How? (Chest pain, [place], [place], pneumonia, PE, COPD, DKA, ARF, appy, cholecystitis, CVA, Diverticulitis, Homicidal, Suicidal, threat to staff... and all critical care pts) @ -[There is risk of worsening - Lab Data Result diagrams: 04/24/24 09:01 04/24/24 09:01 Lab Results 04/22/24 04/22/24 Range/Units 04:54 04:54 WBC 11.5 H (3.8-10.6) k/uL RBC 5.74 (4.30-5.90) m/uL Hgb 17.7 H (13.0-17.5) gm/dL Hct 52.5 (39.0-53.0) % MCV 91.4 (80.0-100.0) fL MCH 30.8 (25.0-35.0) pg MCHC 33.7 (31.0-37.0) g/dL RDW 11.9 (11.5-15.5) % Plt Count 278 (150-450) k/uL MPV 7.3 Neutrophils % 69 % Lymphocytes % 21 % Monocytes % 6 % Eosinophils % 2 % Basophils % 1 % Neutrophils # 8.0 H (1.3-7.7) k/uL Lymphocytes # 2.4 (1.0-4.8) k/uL Monocytes # 0.7 (0-1.0) k/uL Eosinophils # 0.2 (0-0.7) k/uL Basophils # 0.1 (0-0.2) k/uL Sodium 141 (137-145) mmol/L Potassium 4.3 (3.5-5.1) mmol/L Chloride 104 (98-107) mmol/L Carbon Dioxide 30 (22-30) mmol/L Anion Gap 7 mmol/L BUN 11 (9-20) mg/dL Creatinine 1.01 (0.66-1.25) mg/dL Est GFR (CKD-EPI)AfAm >90 (>60 ml/min/1.73 sqM) Est GFR (CKD-EPI)NonAf >90 (>60 ml/min/1.73 sqM) Glucose 95 (74-99) mg/dL Calcium 10.0 (8.4-10.2) mg/dL Total Bilirubin 1.2 (0.2-1.3) mg/dL AST 29 (17-59) U/L ALT 49 (4-49) U/L Alkaline Phosphatase 69 (38-126) U/L Total Protein 8.6 H (6.3-8.2) g/dL Albumin 5.5 H (3.5-5.0) g/dL Amylase 47 (30-110) U/L Lipase 49 (23-300) U/L Disposition Clinical Impression: Abdominal pain, Acute cholecystitis Disposition: ADMITTED IP TO THIS HOSP Condition: Fair Is patient prescribed a controlled substance at d/c from ED?: No
[2024-04-22 05:04] LABS: Basophils # (A) 0.1 k/uL (0-0.2); Basophils % (A) 1 %; Eosinophils # (A) 0.2 k/uL (0-0.7); Eosinophils % (A) 2 %; HCT 52.5 % (39.0-53.0); HGB 17.7 gm/dL (13.0-17.5); Lymphocytes # (A) 2.4 k/uL (1.0-4.8); Lymphocytes % (A) 21 %; MCH 30.8 pg (25.0-35.0); MCHC 33.7 g/dL (31.0-37.0); MCV 91.4 fL (80.0-100.0); Mean Platelet Volume 7.3; Monocytes # (A) 0.7 k/uL (0-1.0); Monocytes % (A) 6 %; Neutrophils % (A) 69 %; Platelet Count 278 k/uL (150-450); RBC 5.74 m/uL (4.30-5.90); RDW 11.9 % (11.5-15.5); WBC 11.5 k/uL (3.8-10.6)
[2024-04-22 05:14] LABS: ALT 49 U/L (4-49); AST 29 U/L (17-59); African American GFR (CKD) >90 (>60 ml/min/1.73 sqM); Albumin 5.5 g/dL (3.5-5.0); Alkaline Phosphatase 69 U/L (38-126); Amylase 47 U/L (30-110); Anion Gap 7 mmol/L; Blood Urea Nitrogen 11 mg/dL (9-20); Carbon Dioxide 30 mmol/L (22-30); Chloride 104 mmol/L (98-107); Glucose 95 mg/dL (74-99); Lipase 49 U/L (23-300); Non-African American GFR(CKD) >90 (>60 ml/min/1.73 sqM); Potassium 4.3 mmol/L (3.5-5.1); Sodium 141 mmol/L (137-145); Total Bilirubin 1.2 mg/dL (0.2-1.3); Total Protein 8.6 g/dL (6.3-8.2)
[2024-04-22] MEDS ORDERED: NALOXONE 0.4 MG/ML 1 ML VIAL IV PRN (06:43)
[2024-04-22] MEDS ORDERED: MAG HYDROX/AL HYDROX/SIMETH 30 ML CUP PO PRN (06:43)
[2024-04-22] MEDS: PANTOPRAZOLE 40 MG/10 ML VIAL IV SCH (08:31)
[2024-04-22] MEDS: SODIUM CHLORIDE 0.9% 1,000 ML IV SCH (08:31)
[2024-04-22] MEDS: metroNIDAZOLE-NS PMX 500 MG in SALINE 1 100ML.BAG IVPB SCH (09:13)
[2024-04-22] MEDS ORDERED: HYDROmorphone (PF) 1 MG/ML ONE (14:49)
[2024-04-22] MEDS ORDERED: KETAMINE HCL IN 0.9 % NACL 50 MG/5 ML SYRINGE ONE (14:49)
[2024-04-22] MEDS ORDERED: LIDOCAINE 1% INJ 10MG/ML (20 ML MDV) ONE (14:49)
[2024-04-22] MEDS ORDERED: KETOROLAC 15 MG/ML 1 ML VIAL ONE (14:49)
[2024-04-22] MEDS ORDERED: ceFAZolin 1 GM/50 ML BAG (PMX) ONE (14:49)
[2024-04-22] MEDS: SODIUM CHLORIDE 0.9% 50 ML with ceFAZolin 2,000 MG IV ONE ×2 (14:49)
[2024-04-22] MEDS ORDERED: MIDAZOLAM 2 MG/2 ML VIAL ONE (14:49)
[2024-04-22] MEDS ORDERED: fentaNYL (PF) 50 MCG/ML 2 ML AMP ONE (14:49)
[2024-04-22] MEDS ORDERED: PROPOFOL 10 MG/ML 20 ML VIAL IV ONE (14:49)
[2024-04-22] MEDS ORDERED: ROCURONIUM 10 MG/ML (5 ML VIAL) IV ONE (14:49)
[2024-04-22] MEDS: SODIUM CHLORIDE 0.9% 1,000 ML IV ONE (14:49)
[2024-04-22] MEDS: LACTATED RINGERS 1,000 ML IV ONE (15:57)
[2024-04-22] MEDS: LIDOCAINE 1%-EPI 1:100,000 20 ML VIAL SQ ONE (16:50)
[2024-04-22] MEDS: ONDANSETRON 4 MG/2 ML VIAL IVP ONE (17:52)
[2024-04-22] MEDS: ONDANSETRON 4 MG/2 ML VIAL IVP PRN (18:46)
--- NOTE | 2024-04-22 19:32 | P.GSHP ---
History of Present Illness Patient is a 38 yo male presenting with acute on chronic abdominal pain. Patient complains of abdominal pain x 3 years but has gotten worse over the last several days causing extreme pain in the right upper quadrant.Patient denies any alleviating symptoms but admits to worsening pain with food or movements. Currently denies fevers, chills, shortness of breath or chest pain. Past Medical History Past Medical History: Asthma Additional Past Medical History / Comment(s): neurontin helping with bipolar History of Any Multi-Drug Resistant Organisms: None Reported Additional Past Surgical History / Comment(s): facial reconstruction Past Psychological History: ADD/ADHD, Bipolar, Depression, Panic Disorder, PTSD Past Alcohol Use History: None Reported Past Drug Use History: None Reported Medications and Allergies Home Medications Medication Instructions Recorded Confirmed Type HYDROcodone/APAP 10-325MG [[place] 1 tab PO Q6H PRN MDD 4 tabs 04/22/24 04/22/24 History 10-325] Ibuprofen [Motrin] 800 mg PO Q6H PRN 04/22/24 04/22/24 History Allergies Allergy/AdvReac Type Severity Reaction Status Date / Time latex Allergy Swelling Verified 04/22/24 09:32 Penicillins Allergy Unknown Verified 04/22/24 09:32 Childhood Surgical - Exam Osteopathic Statement: *. No significant issues noted on an osteopathic structural exam other than those noted in the History and Physical/Consult. Vital Signs Temp Pulse Resp BP Pulse Ox 98.1 F 85 18 137/72 96 04/22/24 04:24 04/22/24 04:24 04/22/24 04:24 04/22/24 04:24 04/22/24 04:24 - General gen; nad cv: rrr pul: non labored breathing abd: soft, non distended, tender to palpation, no guarding or rebound tenderness ext: no edema b/l Results - Labs 04/22/24 04:54 04/22/24 04:54 Abnormal Lab Results - Last 24 Hours (Table) 04/22/24 04/22/24 Range/Units 04:54 04:54 WBC 11.5 H (3.8-10.6) k/uL Hgb 17.7 H (13.0-17.5) gm/dL Neutrophils # 8.0 H (1.3-7.7) k/uL Total Protein 8.6 H (6.3-8.2) g/dL Albumin 5.5 H (3.5-5.0) g/dL Diabetes panel 04/22/24 Range/Units 04:54 Sodium 141 (137-145) mmol/L Potassium 4.3 (3.5-5.1) mmol/L Chloride 104 (98-107) mmol/L Carbon Dioxide 30 (22-30) mmol/L BUN 11 (9-20) mg/dL Creatinine 1.01 (0.66-1.25) mg/dL Glucose 95 (74-99) mg/dL Calcium 10.0 (8.4-10.2) mg/dL AST 29 (17-59) U/L ALT 49 (4-49) U/L Alkaline Phosphatase 69 (38-126) U/L Total Protein 8.6 H (6.3-8.2) g/dL Albumin 5.5 H (3.5-5.0) g/dL Calcium panel 04/22/24 Range/Units 04:54 Calcium 10.0 (8.4-10.2) mg/dL Albumin 5.5 H (3.5-5.0) g/dL Pituitary panel 04/22/24 Range/Units 04:54 Sodium 141 (137-145) mmol/L Potassium 4.3 (3.5-5.1) mmol/L Chloride 104 (98-107) mmol/L Carbon Dioxide 30 (22-30) mmol/L BUN 11 (9-20) mg/dL Creatinine 1.01 (0.66-1.25) mg/dL Glucose 95 (74-99) mg/dL Calcium 10.0 (8.4-10.2) mg/dL Adrenal panel 04/22/24 Range/Units 04:54 Sodium 141 (137-145) mmol/L Potassium 4.3 (3.5-5.1) mmol/L Chloride 104 (98-107) mmol/L Carbon Dioxide 30 (22-30) mmol/L BUN 11 (9-20) mg/dL Creatinine 1.01 (0.66-1.25) mg/dL Glucose 95 (74-99) mg/dL Calcium 10.0 (8.4-10.2) mg/dL Total Bilirubin 1.2 (0.2-1.3) mg/dL AST 29 (17-59) U/L ALT 49 (4-49) U/L Alkaline Phosphatase 69 (38-126) U/L Total Protein 8.6 H (6.3-8.2) g/dL Albumin 5.5 H (3.5-5.0) g/dL Assessment and Plan Assessment: 38 yo male w/ acute on chronic cholecystitis -or today -pain control Time with Patient: Greater than 30
[2024-04-22] MEDS ORDERED: MORPHINE SULFATE 4 MG/ML SYRINGE IVP PRN (19:38)
[2024-04-22] MEDS: LACTATED RINGERS 1,000 ML IV SCH (19:40)
[2024-04-22] MEDS: DEXAMETHASONE SOD PHOSPHATE 4 MG/ML 1 ML VIAL IV ONE (19:40)
[2024-04-22] MEDS: PROCHLORPERAZINE INJ 10 MG/2 ML VIAL IVP STA (19:56)
--- NOTE | 2024-04-22 22:21 | P.OP ---
Date of Procedure: 04/22/24 Preoperative Diagnosis: acute cholecystitis Postoperative Diagnosis: acute cholecystitis Procedure(s) Performed: robotic cholecystectomy Anesthesia: CHELLYA Surgeon: Romaine La Estimated Blood Loss (ml): 15 Pathology: other (gallbladder) Condition: stable Disposition: PACU Indications for Procedure: acute cholecystitis Operative Findings: adhesions along the gallbladder and duodenum Description of Procedure: The patient was brought to the operating suite where he was clean and dragged and sterile fashion. A timeout was performed and everyone agreed with the information recited. A number 15 blade was used to make an incision in the left upper quadrant and three more [address] and the mid and right abdomen. The 5 mm port was then exchange for an 8 mm port. The robot was then docked in the abdomen, there was a large amount of regions along the gallbladder. These adhesions were taken down first and significant amount of fat was taken off of the gallbladder. The gallbladder was finally grasped and retracted cephalad and laterally and dissected from a lateral to medial direction.The cystic duct and artery was skeltonized and clipped. These structures were ligated using electrocautery. The gallbladder was removed off of the gallbladder fossa using electrocautery. The gallbladder was placed in an endocatch and removed out of the left upper quadrant incision. The abdomen was suctioned and irrigated and all instruments were taken out of the abdomen under direct visualization. The left upper quadrant was closed using 0 vicryl suture. The skin incision was closed using 4-0 vicryl suture in a interrupted fashion. The patient was transported to pacu in stable condition.
[2024-04-22] MEDS: HYDROcodone/APAP 5-325MG 1 EACH TAB PO PRN (23:20)
[2024-04-22] MEDS: SCOPOLAMINE 1 MG/72 HR PATCH TRANSDERM SCH (23:23)
[2024-04-23] MEDS ORDERED: HYDROmorphone 0.5 MG/0.5 ML SYRINGE IVP PRN (07:00)
[2024-04-23 11:25] LABS: Basophils % (A) 0 %; Eosinophils # (A) 0.1 k/uL (0-0.7); Eosinophils % (A) 1 %; HCT 47.8 % (39.0-53.0); HGB 16.2 gm/dL (13.0-17.5); Lymphocytes # (A) 1.5 k/uL (1.0-4.8); Lymphocytes % (A) 10 %; MCHC 33.8 g/dL (31.0-37.0); MCV 91.8 fL (80.0-100.0); Mean Platelet Volume 7.8; Monocytes # (A) 0.5 k/uL (0-1.0); Monocytes % (A) 4 %; Neutrophils % (A) 85 %; Platelet Count 235 k/uL (150-450); RDW 12.4 % (11.5-15.5); WBC 14.2 k/uL (3.8-10.6)
[2024-04-23 11:48] LABS: ALT 59 U/L (4-49); AST 46 U/L (17-59); African American GFR (CKD) >90 (>60 ml/min/1.73 sqM); Albumin 4.9 g/dL (3.5-5.0); Albumin/Globulin Ratio 1.8; Alkaline Phosphatase 58 U/L (38-126); Anion Gap 9 mmol/L; Bilirubin,Unconjugated 0.6 mg/dL (0.0-1.1); Blood Urea Nitrogen 11 mg/dL (9-20); Calcium 9.3 mg/dL (8.4-10.2); Carbon Dioxide 28 mmol/L (22-30); Chloride 102 mmol/L (98-107); Globulin 2.8 g/dL; Glucose 159 mg/dL (74-99); Non-African American GFR(CKD) >90 (>60 ml/min/1.73 sqM); Potassium 3.8 mmol/L (3.5-5.1); Sodium 139 mmol/L (137-145); Total Bilirubin 0.9 mg/dL (0.2-1.3); Total Protein 7.7 g/dL (6.3-8.2)
--- NOTE | 2024-04-23 15:04 | P.PN ---
Subjective Progress Note Date: 04/23/24 SURGICAL PROGRESS NOTE CHIEF COMPLAINT: Acute cholecystitis HISTORY OF PRESENT ILLNESS: Postop day #1 status post robotic cholecystectomy. Patient complains of abdominal pain. He has pain more along the lower rib cage. He did have some flatus. He was vomiting yesterday after surgery. Currently no nausea. He reports he is urinating. Afebrile. WBC 11.5 up to 14.2 Hgb 16.2 platelets 235 PHYSICAL EXAM: VITAL SIGNS: Reviewed. GENERAL: Well-developed in no acute distress. HEENT: No sclera icterus. Extraocular movements grossly intact. Moist buccal mucosa. Head is atraumatic, normocephalic. ABDOMEN: Soft. Nondistended. Tenderness at incision sites more so left. Incision sites clean dry and intact NEUROLOGIC: Alert and oriented. Cranial nerves II through XII grossly intact. ASSESSMENT: 1. Acute cholecystitis PLAN: -Advance diet to clear liquids for lunch and then regular for dinner -Continue pain management -Encourage patient to ambulate -Continue antibiotics -Repeat CBC in a.m. -Anticipate discharge tomorrow -Abdominal binder and ice as needed ordered to help with pain management Physician Converter Supervisor note has been reviewed by physician. Signing provider agrees with the documented findings, assessment, and plan of care. Objective - Vital Signs Vital signs: Vital Signs Temp 98.8 F 04/23/24 12:57 Pulse 54 L 04/23/24 12:57 Resp 16 04/23/24 12:57 BP 120/85 04/23/24 12:57 Pulse Ox 95 04/23/24 12:57 FiO2 Intake & Output 04/22/24 04/23/24 04/23/24 18:59 06:59 18:59 Intake Total 1750 1175 Balance 1750 1175 Weight 91.172 kg Intake: IV 1750 Intake, IV Titration 585 Amount Lactated Ringers 1,000 ml 225 @ 20 mls/hr IV .Q24H JAZ Rx#:[id number] Sodium Chloride 0.9% 1, 260 000 ml @ 130 mls/hr IV . Q7H42M JAZ Rx#:[id number] metroNIDAZOLE-NS PMX 500 100 mg In Saline 1 100ml.bag @ 100 mls/hr IVPB Q8H JAZ Rx#:[id number] Oral 590 Other: Voiding Method Toilet # Voids 2 - Labs CBC & Chem 7: 04/23/24 11:12 04/23/24 11:12 Labs: Abnormal Lab Results - Last 24 Hours (Table) 04/23/24 04/23/24 Range/Units 11:12 11:12 WBC 14.2 H (3.8-10.6) k/uL Neutrophils # 12.0 H (1.3-7.7) k/uL Glucose 159 H (74-99) mg/dL ALT 59 H (4-49) U/L
[2024-04-24 08:44] VITALS: RESP 17
[2024-04-24 09:30] LABS: Basophils % (A) 0 %; Eosinophils # (A) 0.1 k/uL (0-0.7); Eosinophils % (A) 1 %; HCT 45.9 % (39.0-53.0); HGB 15.3 gm/dL (13.0-17.5); Lymphocytes # (A) 1.6 k/uL (1.0-4.8); Lymphocytes % (A) 15 %; MCH 30.3 pg (25.0-35.0); MCHC 33.3 g/dL (31.0-37.0); MCV 90.8 fL (80.0-100.0); Mean Platelet Volume 8.2; Monocytes # (A) 0.5 k/uL (0-1.0); Monocytes % (A) 4 %; Neutrophils # (A) 8.6 k/uL (1.3-7.7); Neutrophils % (A) 79 %; Platelet Count 207 k/uL (150-450); RBC 5.06 m/uL (4.30-5.90); RDW 12.2 % (11.5-15.5)
[2024-04-24 09:37] LABS: ALT 53 U/L (4-49); AST 34 U/L (17-59); African American GFR (CKD) >90 (>60 ml/min/1.73 sqM); Albumin 4.3 g/dL (3.5-5.0); Albumin/Globulin Ratio 1.9; Anion Gap 9 mmol/L; Blood Urea Nitrogen 4 mg/dL (9-20); Calcium 8.9 mg/dL (8.4-10.2); Carbon Dioxide 25 mmol/L (22-30); Chloride 105 mmol/L (98-107); Globulin 2.3 g/dL; Glucose 130 mg/dL (74-99); Non-African American GFR(CKD) >90 (>60 ml/min/1.73 sqM); Potassium 3.8 mmol/L (3.5-5.1); Sodium 139 mmol/L (137-145); Total Bilirubin 0.7 mg/dL (0.2-1.3); Total Protein 6.6 g/dL (6.3-8.2)
[2024-04-24 09:38] LABS: Alkaline Phosphatase 51 U/L (38-126)
[2024-04-24] MEDS: SIMETHICONE 40 MG/0.6 ML DROPS 2,000 MG/30 ML BOTTLE PO SCH (13:02)
[2024-04-24 13:46] VITALS: BP 127/82; PULSE 75; TEMP 98.6
[2024-04-24 15:06] VITALS: BMI 26.5
--- NOTE | 2024-04-24 15:16 | P.PN ---
Subjective Progress Note Date: 04/24/24 SURGICAL PROGRESS NOTE CHIEF COMPLAINT: Acute cholecystitis HISTORY OF PRESENT ILLNESS: Postop day #2 status post Robotic cholecystectomy. Patient is up and ambulating in the hallway. He is complaining of gas pains. He is having flatus. He denies any nausea or vomiting. He is tolerating regular diet. Afebrile. Mildly tachycardic now improved. WBC is down from 14.2-11 PHYSICAL EXAM: VITAL SIGNS: Reviewed. GENERAL: Well-developed in no acute distress. HEENT: No sclera icterus. Extraocular movements grossly intact. Moist buccal mucosa. Head is atraumatic, normocephalic. ABDOMEN: Soft. Nondistended. Tenderness at incision sites more so left. Incision sites clean dry and intact NEUROLOGIC: Alert and oriented. Cranial nerves II through XII grossly intact. ASSESSMENT: 1. Acute cholecystitis PLAN: -Add Mylicon gas drops -Encourage patient to ambulate -Continue regular diet -Continue antibiotics Physician Taker Off note has been reviewed by physician. Signing provider agrees with the documented findings, assessment, and plan of care. Attestation Patient seen and examined at bedside. Doing well since surgery. Requesting discharge. Appears to be appropriate for discharge. Wound care and activity instructions provided. Ioana White DO Objective - Vital Signs Vital signs: Vital Signs Temp 98.6 F 04/24/24 13:21 Pulse 75 04/24/24 13:21 Resp 17 04/24/24 13:21 BP 127/82 04/24/24 13:21 Pulse Ox 98 04/24/24 13:21 FiO2 Intake & Output 04/23/24 04/24/24 04/24/24 18:59 06:59 18:59 Intake Total 1420 590 Balance 1420 590 Weight 91.172 kg Intake: Intake, IV Titration 1420 Amount Sodium Chloride 0.9% 1, 1170 000 ml @ 130 mls/hr IV . Q7H42M JAZ Rx#:[id number] cefTRIAXone 2 gm In 50 Sodium Chloride 0.9% 50 ml @ 100 mls/hr IVPB DAILY JAZ Rx#:[id number] metroNIDAZOLE-NS PMX 500 200 mg In Saline 1 100ml.bag @ 100 mls/hr IVPB Q8H JAZ Rx#:[id number] Oral 590 Other: Voiding Method Toilet # Voids 2 - Labs CBC & Chem 7: 04/24/24 09:01 04/24/24 09:01 Labs: Abnormal Lab Results - Last 24 Hours (Table) 04/24/24 04/24/24 Range/Units 09:01 09:01 WBC 11.0 H (3.8-10.6) k/uL Neutrophils # 8.6 H (1.3-7.7) k/uL BUN 4 L (9-20) mg/dL Glucose 130 H (74-99) mg/dL ALT 53 H (4-49) U/L
--- NOTE | 2024-04-24 16:07 | P.DS ---
Providers Date of admission: 04/22/24 06:43 Attending physician: Romaine La DO Primary care physician: Anastasiia [facility] Course: 38-year-old male presented to the emergency department with abdominal pain and found to have cholecystitis. He did undergo cholecystectomy. Postoperatively, patient has been doing well and improving. Leukocytosis resolving. Tolerating diet. Surgically stable for discharge. Assessment: Abdomen with skin incision sites clean, dry and intact, soft and nondistended Procedures: Cholecystectomy Patient Condition at Discharge: Fair Plan - Discharge Summary Discharge Rx Participant: No New Discharge Prescriptions: Continue Ibuprofen [Motrin] 800 mg PO Q6H PRN #24 tab PRN Reason: pain HYDROcodone/APAP 10-325MG [[place] 10-325] 1 tab PO Q6H PRN #12 tab MDD 4 tabs PRN Reason: Pain Discharge Medication List HYDROcodone/APAP 10-325MG [[place] 10-325] 1 tab PO Q6H PRN #12 tab MDD 4 tabs 04/24/24 [Rx] Ibuprofen [Motrin] 800 mg PO Q6H PRN #24 tab 04/24/24 [Rx] Follow up Appointment(s)/Referral(s): Anastasiia Alicea MD [Primary Care Provider] - 1-2 days Romaine La DO [Doctor of Osteopathic Medicine] - 2 Weeks Patient Instructions/Handouts: Laparoscopic Cholecystectomy (DC) Activity/Diet/Wound Care/Special Instructions: Okay to shower No lifting greater than 10 pounds for 2 weeks Stay on low-fat diet Take pain medication as needed Discharge Disposition: HOME SELF-CARE
[2024-04-25] MEDS ORDERED: PANTOPRAZOLE 40 MG TABLET PO SCH (07:30)
== END 2024-04-24 17:32 | disposition home or self-care (01) ==
LOC: EC 02:38 → 5NMEDONC 06:43 → INTOOBSV 06:43 → 5NMEDONC 07:06
PROVIDERS: ADMIT Surgery; ATTEND Surgery
DX: K81.2 Acute cholecystitis with chronic cholecystitis (principal); K82.8 Other specified diseases of gallbladder; K91.0 Vomiting following gastrointestinal surgery; R00.0 Tachycardia, unspecified; Z88.0 Allergy status to penicillin; Z91.040 Latex allergy status
CPT/HCPCS: 47562; S2900; 36415; 80048; 80053; 80076; 82150; 83690; 85025; 88304; 99284

== ENCOUNTER 2024-05-21 09:25 | Emergency (ER) | payer OTHER ==
--- NOTE | 2024-05-21 10:07 | ED ---
General Adult HPI - General Chief complaint: Altered Mental Status Stated complaint: Unconscious Time Seen by Provider: 05/21/24 09:31 Source: patient, RN notes reviewed, old records reviewed Mode of arrival: EMS Limitations: no limitations - History of Present Illness Initial comments: 38-year-old male history limited. Patient presenting with altered level of consciousness. Apparently the patient had been nonresponsive and then was able to talk to paramedics. He is lying flat on the gurney with stable vitals in sinus rhythm. He has a gag reflex. He had answered yes or no questions to nursing staff but will not answer questions for me. - Related Data Home Medications Medication Instructions Recorded Confirmed No Known Home Medications 05/21/24 05/21/24 Allergies Allergy/AdvReac Type Severity Reaction Status Date / Time latex Allergy Swelling Verified 05/21/24 09:44 Penicillins Allergy Unknown Verified 05/21/24 12:02 Childhood Review of Systems ROS Statement: Those systems with pertinent positive or pertinent negative responses have been documented in the HPI. ROS Other: All systems not noted in ROS Statement are negative. Past Medical History Past Medical History: Asthma Additional Past Medical History / Comment(s): neurontin helping with bipolar History of Any Multi-Drug Resistant Organisms: None Reported Additional Past Surgical History / Comment(s): facial reconstruction Past Anesthesia/Blood Transfusion Reactions: Postoperative Nausea & Vomiting (PONV) Additional Past Anesthesia/Blood Transfusion Reaction / Comment(s): Pt used marajuana prior to scheduled surgery which could have caused the post op nausea and vomiting Past Psychological History: ADD/ADHD, Bipolar, Depression, Panic Disorder, PTSD Smoking Status: Current every day smoker Past Alcohol Use History: None Reported Past Drug Use History: None Reported - Past Family History Father Family Medical History: Cancer Additional Family Medical History / Comment(s): Bone CA Mother Family Medical History: Cancer, Myocardial Infarction ([place]) Additional Family Medical History / Comment(s): Lung CA General Exam Limitations: no limitations General appearance: in no apparent distress, lethargic Head exam: Present: atraumatic, normocephalic Eye exam: Present: normal appearance, PERRL ENT exam: Present: other (Normal gag) Respiratory exam: Present: normal lung sounds bilaterally. Absent: respiratory distress, wheezes Cardiovascular Exam: Present: regular rate, normal rhythm GI/Abdominal exam: Present: soft. Absent: distended Extremities exam: Present: normal inspection Neurological exam: Absent: alert, oriented X3 Skin exam: Present: warm, dry, intact Course Vital Signs 05/21/24 05/21/24 09:32 11:36 Temperature 100 F H 98 F Pulse Rate 93 82 Respiratory 14 16 Rate Blood Pressure 139/81 133/84 O2 Sat by Pulse 100 98 Oximetry Medical Decision Making - Medical Decision Making Was pt. sent in by a medical professional or institution (, DALIA, MANUFACTURING ENGINEERING TECHNICIAN, urgent care, hospital, or assisted...) When possible be specific @ -No Did you speak to anyone other than the patient for history (EMS, parent, family, police, friend...)? What history was obtained from this source @ -No Did you review nursing and triage notes (agree or disagree)? Why? @ -I reviewed and agree with nursing and triage notes Were old charts reviewed (outside hosp., previous admission, EMS record, old EKG, old radiological studies, urgent care reports/EKG's, assisted records)? Report findings @ -No old charts were reviewed Differential Altered Mental Status: Hypoglycemia, DKA, hypercapnia, ETOH, overdose, CO poisoning, trauma, myxedema coma, HTN encephalopathy, infection, encephalitis, psychosis, intercranial hemorrhage, hepatic encephalopathy, meningitis, CVA, this is not meant to be an all-inclusive list Differential Mental Health Depression, anxiety, bipolar, psychosis, schizophrenia, borderline personality, situational depression, adjustment disorder, behavioral disorder, brain tumor, malingering, substance abuse, encephalopathy, medication reaction, dementia, hypothyroidism, degenerative neurologic disorder, lupus.... This is not meant to be all-inclusive list EKG interpreted by me (3pts min.). @Sinus rhythm rate of 96, MN interval 137, QRS duration 88, QTc [address] segment elevation. X-rays interpreted by me (1pt min.). @ -None done CT interpreted by me (1pt min.). @ -None done U/S interpreted by me (1pt. min.). @ -None done What testing was considered but not performed or refused? (CT, X-rays, U/S, labs)? Why? @ -None What meds were considered but not given or refused? Why? @ -None Did you discuss the management of the patient with other professionals (professionals i.e. Dr., PA, MANUFACTURING ENGINEERING TECHNICIAN, lab, RT, psych nurse, manager social, sr. manager corporate communications, teacher, security officers and guards, case management director)? Give summary @ -No Was smoking cessation discussed for >3mins.? @ -No Was critical care preformed (if so, how long)? @ -No Were there social determinants of health that impacted care today? How? (H omelessness, low income, unemployed, alcoholism, drug addiction, transportation, low edu. Level, literacy, decrease access to med. care, correction, rehab)? @ -No Was there de-escalation of care discussed even if they declined (Discuss DNR or withdrawal of care, Hospice)? DNR status @ -No What co-morbidities impacted this encounter? (DM, HTN, Smoking, COPD, CAD, Cancer, CVA, ARF, Chemo, Hep., AIDS, mental health diagnosis, sleep apnea, morbid obesity)? @ -None Was patient admitted / discharged? Hospital course, mention meds given and route, prescriptions, significant lab abnormalities, going to OR and other pertinent info. @ -38-year-old male presenting with's intermittent altered mental status. Suspect psychological cause of symptoms. He did receive workup including CBC, CMP, urinalysis, drug screen, alcohol, EKG. His vitals are stable and his workup is unremarkable. I obtained further history from the cousin who states that his did recently leave him approximately 1 week ago. He has 4 children that he is caring for. After several hours in the emergency department he does regain a normal level of consciousness and admits that he just needed a minute. He states he wishes to be discharged and denies any suicidal or homicidal ideation. He states he just wants to be with his kids. He states he has outpatient resources for mental health including the hotline. Undiagnosed new problem with uncertain prognosis? @ -No Drug Therapy requiring intensive monitoring for toxicity (Heparin, Nitro, Insulin, Cardizem)? @ -No Were any procedures done? @ -No Diagnosis/symptom? @ -Situational depression Acute, or Chronic, or Acute on Chronic? @ -Acute Uncomplicated (without systemic symptoms) or Complicated (systemic symptoms)? @ -Default Side effects of treatment? @ -No Exacerbation, Progression, or Severe Exacerbation? @ -No Poses a threat to life or bodily function? How? (Chest pain, [place], [place], pneumonia, PE, COPD, DKA, ARF, appy, cholecystitis, CVA, Diverticulitis, Homicidal, Suicidal, threat to staff... and all critical care pts) @ -Low risk at this time - Lab Data Result diagrams: 05/21/24 10:05 05/21/24 10:05 Lab Results 05/21/24 05/21/24 05/21/24 Range/Units 10:05 10:05 10:16 WBC 7.9 (3.8-10.6) k/uL RBC 4.98 (4.30-5.90) m/uL Hgb 15.5 (13.0-17.5) gm/dL Hct 45.8 (39.0-53.0) % MCV 91.9 (80.0-100.0) fL MCH 31.1 (25.0-35.0) pg MCHC 33.8 (31.0-37.0) g/dL RDW 12.1 (11.5-15.5) % Plt Count 216 (150-450) k/uL MPV 7.7 Neutrophils % 66 % Lymphocytes % 24 % Monocytes % 6 % Eosinophils % 2 % Basophils % 0 % Neutrophils # 5.3 (1.3-7.7) k/uL Lymphocytes # 1.9 (1.0-4.8) k/uL Monocytes # 0.5 (0-1.0) k/uL Eosinophils # 0.2 (0-0.7) k/uL Basophils # 0.0 (0-0.2) k/uL Sodium 140 (137-145) mmol/L Potassium 3.8 (3.5-5.1) mmol/L Chloride 106 (98-107) mmol/L Carbon Dioxide 29 (22-30) mmol/L Anion Gap 5 mmol/L BUN 7 L (9-20) mg/dL Creatinine 0.91 (0.66-1.25) mg/dL Est GFR (CKD-EPI)AfAm >90 (>60 ml/min/1.73 sqM) Est GFR (CKD-EPI)NonAf >90 (>60 ml/min/1.73 sqM) Glucose 84 (74-99) mg/dL Calcium 9.3 (8.4-10.2) mg/dL Total Bilirubin 0.5 (0.2-1.3) mg/dL AST 45 (17-59) U/L ALT 29 (4-49) U/L Alkaline Phosphatase 72 (38-126) U/L Troponin I (0.000-0.034) ng/mL Total Protein 6.1 L (6.3-8.2) g/dL Albumin 4.1 (3.5-5.0) g/dL Urine Color Colorless Urine Appearance Clear (Clear) Urine pH 7.0 (5.0-8.0) Ur Specific [place] 1.004 (1.001-1.035) Urine Protein Negative (Negative) Urine Glucose (UA) Negative (Negative) Urine Ketones Negative (Negative) Urine Blood Negative (Negative) Urine Nitrite Negative (Negative) Urine Bilirubin Negative (Negative) Urine Urobilinogen <2.0 (<2.0) mg/dL Ur Leukocyte Esterase Negative (Negative) Urine Opiates Screen Not Detected (NotDetected) Ur Oxycodone Screen Not Detected (NotDetected) Urine Methadone Screen Not Detected (NotDetected) Ur Barbiturates Screen Not Detected (NotDetected) U Tricyclic Antidepress Not Detected (NotDetected) Ur Phencyclidine Scrn Not Detected (NotDetected) Ur Amphetamines Screen Not Detected (NotDetected) U Methamphetamines Scrn Not Detected (NotDetected) U Benzodiazepines Scrn Not Detected (NotDetected) Urine Cocaine Screen Not Detected (NotDetected) U Marijuana (THC) Screen Detected H (NotDetected) Serum Alcohol <10 mg/dL Influenza Type A (PCR) (Not Detectd) Influenza Type B (PCR) (Not Detectd) RSV (PCR) (Not Detectd) SARS-CoV-2 (PCR) (Not Detectd) 05/21/24 05/21/24 Range/Units 10:16 11:18 WBC (3.8-10.6) k/uL RBC (4.30-5.90) m/uL Hgb (13.0-17.5) gm/dL Hct (39.0-53.0) % MCV (80.0-100.0) fL MCH (25.0-35.0) pg MCHC (31.0-37.0) g/dL RDW (11.5-15.5) % Plt Count (150-450) k/uL MPV Neutrophils % % Lymphocytes % % Monocytes % % Eosinophils % % Basophils % % Neutrophils # (1.3-7.7) k/uL Lymphocytes # (1.0-4.8) k/uL Monocytes # (0-1.0) k/uL Eosinophils # (0-0.7) k/uL Basophils # (0-0.2) k/uL Sodium (137-145) mmol/L Potassium (3.5-5.1) mmol/L Chloride (98-107) mmol/L Carbon Dioxide (22-30) mmol/L Anion Gap mmol/L BUN (9-20) mg/dL Creatinine (0.66-1.25) mg/dL Est GFR (CKD-EPI)AfAm (>60 ml/min/1.73 sqM) Est GFR (CKD-EPI)NonAf (>60 ml/min/1.73 sqM) Glucose (74-99) mg/dL Calcium (8.4-10.2) mg/dL Total Bilirubin (0.2-1.3) mg/dL AST (17-59) U/L ALT (4-49) U/L Alkaline Phosphatase (38-126) U/L Troponin I <0.012 (0.000-0.034) ng/mL Total Protein (6.3-8.2) g/dL Albumin (3.5-5.0) g/dL Urine Color Urine Appearance (Clear) Urine pH (5.0-8.0) Ur Specific [place] (1.001-1.035) Urine Protein (Negative) Urine Glucose (UA) (Negative) Urine Ketones (Negative) Urine Blood (Negative) Urine Nitrite (Negative) Urine Bilirubin (Negative) Urine Urobilinogen (<2.0) mg/dL Ur Leukocyte Esterase (Negative) Urine Opiates Screen (NotDetected) Ur Oxycodone Screen (NotDetected) Urine Methadone Screen (NotDetected) Ur Barbiturates Screen (NotDetected) U Tricyclic Antidepress (NotDetected) Ur Phencyclidine Scrn (NotDetected) Ur Amphetamines Screen (NotDetected) U Methamphetamines Scrn (NotDetected) U Benzodiazepines Scrn (NotDetected) Urine Cocaine Screen (NotDetected) U Marijuana (THC) Screen (NotDetected) Serum Alcohol mg/dL Influenza Type A (PCR) Not Detected (Not Detectd) Influenza Type B (PCR) Not Detected (Not Detectd) RSV (PCR) Not Detected (Not Detectd) SARS-CoV-2 (PCR) Not Detected (Not Detectd) Disposition Clinical Impression: Situational depression Disposition: HOME SELF-CARE Condition: Fair Instructions (If sedation given, give patient instructions): Depression (ED) Additional Instructions: Please return to the emergency department with any worsening or changing symptoms. Is patient prescribed a controlled substance at d/c from ED?: No Referrals: Anastasiia Alicea MD [Primary Care Provider] - 1-2 days Time of Disposition: 12:25
[2024-05-21 10:28] LABS: Basophils % (A) 0 %; Eosinophils # (A) 0.2 k/uL (0-0.7); Eosinophils % (A) 2 %; HCT 45.8 % (39.0-53.0); HGB 15.5 gm/dL (13.0-17.5); Lymphocytes # (A) 1.9 k/uL (1.0-4.8); Lymphocytes % (A) 24 %; MCH 31.1 pg (25.0-35.0); MCHC 33.8 g/dL (31.0-37.0); MCV 91.9 fL (80.0-100.0); Mean Platelet Volume 7.7; Monocytes # (A) 0.5 k/uL (0-1.0); Monocytes % (A) 6 %; Neutrophils # (A) 5.3 k/uL (1.3-7.7); Neutrophils % (A) 66 %; Platelet Count 216 k/uL (150-450); RBC 4.98 m/uL (4.30-5.90); RDW 12.1 % (11.5-15.5); WBC 7.9 k/uL (3.8-10.6)
[2024-05-21 10:33] LABS: Appearance,Urine Clear (Clear); Bilirubin,Urine Negative (Negative); Blood,Urine Negative (Negative); Color,Urine Colorless; Glucose,Urine (UA) Negative (Negative); Ketones,Urine Negative (Negative); Leukocyte Esterase,Urine Negative (Negative); Nitrite,Urine Negative (Negative); Protein,Urine Negative (Negative); Specific Gravity,Urine 1.004 (1.001-1.035); Urobilinogen,Urine <2.0 mg/dL (<2.0)
[2024-05-21 10:43] LABS: ALT 29 U/L (4-49); AST 45 U/L (17-59); African American GFR (CKD) >90 (>60 ml/min/1.73 sqM); Albumin 4.1 g/dL (3.5-5.0); Alcohol <10 mg/dL; Alkaline Phosphatase 72 U/L (38-126); Anion Gap 5 mmol/L; Blood Urea Nitrogen 7 mg/dL (9-20); Calcium 9.3 mg/dL (8.4-10.2); Carbon Dioxide 29 mmol/L (22-30); Chloride 106 mmol/L (98-107); Glucose 84 mg/dL (74-99); Non-African American GFR(CKD) >90 (>60 ml/min/1.73 sqM); Potassium 3.8 mmol/L (3.5-5.1); Sodium 140 mmol/L (137-145); Total Bilirubin 0.5 mg/dL (0.2-1.3); Total Protein 6.1 g/dL (6.3-8.2)
[2024-05-21 10:50] LABS: Amphetamine Screen,Urine Not Detected (NotDetected); Barbiturate Screen,Urine Not Detected (NotDetected); Benzodiazepines Screen,Urine Not Detected (NotDetected); Cocaine Screen,Urine Not Detected (NotDetected); Methadone Screen, Urine Not Detected (NotDetected); Opiate Screen,Urine Not Detected (NotDetected); Oxycodone Screen, Urine Not Detected (NotDetected); Phencyclidine Screen,Urine Not Detected (NotDetected); Tricyclic Antidepressant,Urine Not Detected (NotDetected); Urn Cannabinoid Scrn Detected (NotDetected)
[2024-05-21 11:37] VITALS: TEMP 98
[2024-05-21 12:44] VITALS: BP 132/80; PULSE 80; RESP 20
== END 2024-05-21 12:44 | disposition home or self-care (01) ==
LOC: EC 09:25
DX: F43.21 Adjustment disorder with depressed mood (principal); F17.200 Nicotine dependence, unspecified, uncomplicated; Z11.52 Encounter for screening for COVID-19; Z88.0 Allergy status to penicillin; Z91.040 Latex allergy status
CPT/HCPCS: 36415; 93005; 80053; 84484; 85025; 81003; 80306; 87636; 99285; G0480; 80320